=== PATIENT | female | born 1950 | race Caucasian/White ===

== ENCOUNTER → 2023-03-17 13:07 | Outpatient (REF) | payer MEDICARE, SELFPAY ==
--- NOTE | 2023-03-17 13:12 | CA_ITS ---
Transthoracic Echocardiogram Patient (Last, First, Middle): Roopa Elliott, Gender: Female Date of : 1950 Age: 72 Procedure Date: 03/17/2023 Procedure Type: Transthoracic Echocardiogram Location: [facility] Height: 149.86 cm Weight: 46.27 kg BSA: 1.39 m2 Heart Rate: 72 bpm BP: 130 / 80 mmHg Faculty Support Coordinator: DELVIS Referring MD: Cheryl Solomon MD Symptoms: AORTIC STENOSIS Study Quality: Fair ECG Rhythm: Frequent ventricular premature beats Conclusions: - The left ventricular systolic function is low normal. The calculated ejection fraction is 53% by biplane method. - There is mild calcification of the aortic valve. - No obvious valvular pathology seen on this study. Findings Left Ventricle Normal left ventricular cavity size. There is normal left ventricular wall thickness. The left ventricular systolic function is low normal. The calculated ejection fraction is 53% by biplane method. There is no evidence of regional wall motion abnormalities. E/E prime ratio is between 8 and 15 consistent with indeterminate filling pressures. Evidence suggests grade I (mild) diastolic dysfunction. LV peak GLS -15.6%. Right Ventricle Normal right ventricular cavity size and systolic function. Atria Both atria are normal in size. Aortic Valve There is a normal trileaflet aortic valve. There is mild calcification of the aortic valve. There is no aortic valve stenosis. There is no aortic valve regurgitation. Mitral Valve The mitral valve appears normal. There is trace mitral valve regurgitation. There is no mitral valve stenosis. Pulmonic Valve The pulmonic valve is likely normal. Tricuspid Valve There is no tricuspid valve regurgitation. Tricuspid regurgitation envelope is inadequate for calculation of right ventricular systolic pressure. Great Vessels The asc aorta is normal in size. Venous The inferior vena cava is normal in size and collapses greater than 50% with inspiration. Pericardium/Pleural There is a trivial pericardial effusion. Prior Study Comparison No prior study available for comparison. Recommendations, Care & Conclusions No obvious valvular pathology seen on this study. Measurements 2D Linear Measurements IVSd: 0.72 0.6-0.9/0.6-1.0 cm LVIDd: 4.08 3.9-5.3/4.2-5.9 cm LVIDd Index: 2.94 2.4-3.2/2.2-3.1 cm/m2 LVIDs: 2.43 2.0-3.6 cm LVPWd: 0.86 0.7-1.1 cm LA Diam: 2.70 2.7-3.8/3.0-4.0 cm LAIDs Index: 1.94 1.5-2.3 cm/m2 LV Mass: 118.44 67-162/88-224 g LV Mass Index: 85.21 43-95/49-115 g/m2 LVOT Diam: 1.90 3.0+(-)1.3 cm 2D Systolic Function EF 4C: 53.00 >55% EF 2C: 53.40 >55% EF BiP: 52.70 >55% Mitral Valve MV Pk E: 0.75 MV PK A: 1.02 MV Decel Time: 263.00 E/A: 0.70 E'Lateral: 6.53 E'Medial: 5.22 E/E' Med: 14.40 E/E' Lat: 11.50 PHT: 77.00 MVA PHT: 2.86 Decel Kinney: 2.85 Aortic Valve AoV Pk Denis: 1.35 AoV Mn Denis: 0.98 AoV VTI: 0.30 AoV Pk Grad: 7.00 Aov Mn Grad: 5.00 LGENN Cont.VTI: 2.09 LVOT LVOT Pk Denis: 0.98 LVOT Mn Denis: 0.70 LVOT VTI: 0.22 LVOT Pk Grad: 4.00 LVOT Mn Grad: 2.00 LVOT Diam: 1.90 LVOT Area: 2.84 Diastolic Function MV Pk E: 0.75 MV Pk A: 1.02 E/A: 0.70 E'Medial: 5.22 E/E' Med: 14.40 E' Laterial: 6.53 E/E' Lat: 11.50 Right Ventricle TAPSE (mm): 20.40 TVS' Denis: 11.20 Tricuspid Valve RA Press: 3.00 Great Vessels Aorta Sinus of Valsalva: 2.90 2.0-3.5 cm Ao Asc: 3.10 2.1-3.4 cm Pulmonary Valve PV Pk Denis: 0.84 Peak PV Grad: 3.00 Updated in Other Vendor System with Status of Final Caden Rodgers MD electronically signed on 03/18/2023 12:03:40 PM with status of Final
== END ==
LOC: HO.CARD 13:07
PROVIDERS: Visit Provider Family Medicine
DX: I34.0 Nonrheumatic mitral (valve) insufficiency (principal); I35.8 Other nonrheumatic aortic valve disorders
CPT/HCPCS: 93306